=== PATIENT | female | born 1990 | race Caucasian/White ===

== ENCOUNTER 2019-09-21 14:32 | Emergency (ER) | payer MEDICAID ==
[2019-09-21 14:44] VITALS: BP 128/65
--- NOTE | 2019-09-21 15:22 | XRAY Report ---
Reason: productive cough, fever. Procedure Date: 09/21/2019 Accession Number: [id number] / [id number] Procedure: XR - Chest 2 View X-Ray CPT Code: 18061 Final Report FULL RESULT: EXAM: CHEST RADIOGRAPHY EXAM DATE: 09/21/2019 02:53 PM. CLINICAL HISTORY: Productive cough and fever. COMPARISON: None. TECHNIQUE: 2 views. FINDINGS: Lungs/Pleura: Normal volumes. Patchy infiltrate in the anterior left base. No pleural effusion or pneumothorax. Mediastinum: Normal cardiomediastinal contour. Other: Minimal right convex curvature of the mid/lower thoracic spine. IMPRESSION: Patchy infiltrate in the anterior left base, suspicious for pneumonia in clinical setting of cough and fever. Recommend follow-up imaging 6-8 weeks to ensure resolution. RADIA
--- NOTE | 2019-09-21 16:11 | ED Physician Documentation ---
PD HPI URI - Stated complaint Stated Complaint: THROAT/CHEST/HEAD PAIN, COUGH, NAUSEA - Chief complaint Chief Complaint: Resp - History obtained from History obtained from: Patient - History of Present Illness Timing - onset: Other (Sick for a week and a half with cough productive of small amount of sputum. Exertional shortness of breath. On-and-off fevers and pretty consistent chills. She also has a sore throat and scratchy voice.) Review of Systems Constitutional: reports: Fever, Chills, Fatigue Nose: reports: Rhinorrhea / runny nose. denies: Congestion Throat: reports: Sore throat GI: denies: Vomiting, Diarrhea PD PAST MEDICAL HISTORY - Present Medications Home Medications: Ambulatory Orders Medication Instructions Recorded Confirmed Azithromycin [Zithromax] 1 tab PO DAILY #6 tablet 09/21/19 guaiFENesin/CODEINE [Robitussin AC] 5 - 10 ml PO Q6H PRN #120 ml 09/21/19 - Allergies Allergies/Adverse Reactions: Allergies Allergy/AdvReac Type Severity Reaction Status Date / Time No Known Drug Allergies Allergy Verified 09/21/19 14:44 PD ED PE NORMAL - Vitals Vital signs reviewed: Yes - General General: Alert and oriented X 3, No acute distress - HEENT HEENT: PERRL, Ears normal, Pharynx benign - Neck Neck: Supple, no meningeal sign, No bony TTP - Cardiac Cardiac: RRR, No murmur - Respiratory Respiratory: No respiratory distress, Clear bilaterally - Abdomen Abdomen: Non tender - Back Back: No CVA TTP - Derm Derm: No rash - Neuro Neuro: Alert and oriented X 3 Results - Vitals Vitals: Vital Signs - 24 hr 09/21/19 14:40 Temperature 37 C Heart Rate 104 H Respiratory 18 Rate Blood Pressure 128/65 O2 Saturation 99 Oxygen O2 Source Room air - Rads (name of study) 2v chest Radiology: EMP read contemporaneously (patchy LLL PNA) Departure - Departure Disposition: 01 Home, Self Care Clinical Impression: Pneumonia Qualifiers: Pneumonia type: due to unspecified organism Laterality: left Lung location: lower lobe of lung Qualified Code(s): J18.9 - Pneumonia, unspecified organism Condition: Good Record reviewed to determine appropriate education?: Yes Instructions: Pneumonia Dc Prescriptions: Azithromycin [Zithromax] 1 tab PO DAILY #6 tablet guaiFENesin/CODEINE [Robitussin AC] 5 - 10 ml PO Q6H PRN #120 ml PRN Reason: Cough Comments: Follow-up with your doctor in 1 week for recheck. He or she may want to repeat a chest x-ray in 4 to 6 weeks to demonstrate clearance of the pneumonia in the left lower lobe. Return for new or worsening symptoms. Do not drink or drive while taking the prescription cough syrup.
== END 2019-09-21 16:12 | disposition home or self-care (01) ==
LOC: ED 14:32
DX: J18.9 Pneumonia, unspecified organism (principal)
CPT/HCPCS: 71046; 99283

== ENCOUNTER 2019-09-22 10:15 | Emergency (ER) | payer MEDICAID ==
--- NOTE | 2019-09-22 11:48 | ED Physician Documentation ---
History of Present Illness - Stated complaint Stated Complaint: SOA - Chief complaint Chief Complaint: Resp - Additonal information Additional information: This is a 29-year-old female who returns to emergency department with feeling rundown and not improved since yesterday. She was seen yesterday for productive cough, Found to have a left lower lobe infiltrate and started on azithromycin. Patient states she felt nauseated after taking the azithromycin she did not take it this morning, and she still feels rundown, has a cough, and has felt some chills. She denies vomiting. She does feel some increased work of breathing, Unchanged from yesterday. No hemoptysis. Review of Systems Constitutional: reports: Fever Respiratory: reports: Dyspnea, Cough GI: reports: Nausea. 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 HEENT: None Psych: None Musculoskeletal: None Derm: None - Past Surgical History Past Surgical History: No HEENT: Tonsil/Adenoidectomy - Present Medications Home Medications: Ambulatory Orders Medication Instructions Recorded Confirmed Azithromycin [Zithromax] 1 tab PO DAILY #6 tablet 09/21/19 guaiFENesin/CODEINE [Robitussin AC] 5 - 10 ml PO Q6H PRN #120 ml 09/21/19 Doxycycline Hyclate 100 mg PO BID #20 capsule 09/22/19 Ferrous Gluconate [Iron] 240 mg PO DAILY #30 tablet 09/22/19 Ondansetron Odt [Zofran] 4 mg TL Q6H PRN #10 tablet 09/22/19 - Allergies Allergies/Adverse Reactions: Allergies Allergy/AdvReac Type Severity Reaction Status Date / Time No Known Drug Allergies Allergy Verified 09/22/19 10:28 - Social History Does the pt smoke?: No Smoking Status: Never smoker Does the pt drink ETOH?: Yes Does the pt have substance abuse?: Yes Substance Use and Type: Marijuana - Immunizations Immunizations are current?: No - POLST Patient has POLST: No PD ED PE NORMAL - Vitals Vital signs reviewed: Yes - General General: Alert and oriented X 3, No acute distress - HEENT HEENT: PERRL - Neck Neck: Supple, no meningeal sign - Cardiac Cardiac: RRR, No murmur - Respiratory Respiratory: Other (Slight crackles at the left lower base. Otherwise clear to auscultation bilaterally. Normal work of breathing.) - Abdomen Abdomen: Normal bowel sounds, Soft, Non tender, Non distended - Derm Derm: Warm and dry - Extremities Extremities: No deformity - Neuro Neuro: Alert and oriented X 3 - Psych Psych: Normal mood, Normal affect Results - Vitals Vitals: Oxygen O2 Source Room air - Labs Labs: Microbiology 09/22/19 16:01 Occult Blood - Final Stool Laboratory Tests 09/22/19 09/22/19 09/22/19 12:14 12:24 12:24 WBC 14.1 H RBC 2.92 L Hgb 6.9 L* Hct 22.9 L MCV 78.4 L MCH 23.6 L MCHC 30.1 L RDW 15.9 H Plt Count 297 MPV 9.1 Neut # (Auto) 12.4 H Lymph # (Auto) 0.9 L [place] # (Auto) 0.5 Eos # (Auto) 0.1 Baso # (Auto) 0.0 Absolute Nucleated RBC 0.00 Nucleated RBC % 0.0 Manual Slide Review Indicated WBC Morphology NORMAL APPEARANCE Platelet Estimate NORMAL (130-450,000) Platelet Morphology NORMAL APPEARANCE RBC Morph Micro Appear 1+ POLYCHROMASIA Sodium 138 Potassium 4.0 Chloride 104 Carbon Dioxide 25 Anion Gap 9.0 BUN 9 Creatinine 0.7 Estimated GFR (MDRD) 98 Glucose 91 Lactic Acid Calcium 8.5 Total Bilirubin 0.2 AST 18 ALT 10 Alkaline Phosphatase 51 Total Protein 7.2 Albumin 3.8 Globulin 3.4 Albumin/Globulin Ratio 1.1 Lipase 32 Serum HCG, Qual Urine Color Urine Clarity Urine pH Ur Specific [place] Urine Protein Urine Glucose (UA) Urine Ketones Urine Occult Blood Urine Nitrite Urine Bilirubin Urine Urobilinogen Ur Leukocyte Esterase Ur Microscopic Review Blood Type Blood Type Recheck O POSITIVE Antibody Screen Crossmatch IS Only 09/22/19 09/22/19 09/22/19 12:24 14:03 14:03 WBC RBC Hgb Hct MCV MCH MCHC RDW Plt Count MPV Neut # (Auto) Lymph # (Auto) [place] # (Auto) Eos # (Auto) Baso # (Auto) Absolute Nucleated RBC Nucleated RBC % Manual Slide Review WBC Morphology Platelet Estimate Platelet Morphology RBC Morph Micro Appear Sodium Potassium Chloride Carbon Dioxide Anion Gap BUN Creatinine Estimated GFR (MDRD) Glucose Lactic Acid 0.5 Calcium Total Bilirubin AST ALT Alkaline Phosphatase Total Protein Albumin Globulin Albumin/Globulin Ratio Lipase Serum HCG, Qual NEGATIVE Urine Color Urine Clarity Urine pH Ur Specific [place] Urine Protein Urine Glucose (UA) Urine Ketones Urine Occult Blood Urine Nitrite Urine Bilirubin Urine Urobilinogen Ur Leukocyte Esterase Ur Microscopic Review Blood Type O POSITIVE Blood Type Recheck Antibody Screen NEGATIVE Crossmatch IS Only See Detail 09/22/19 15:40 WBC RBC Hgb Hct MCV MCH MCHC RDW Plt Count MPV Neut # (Auto) Lymph # (Auto) [place] # (Auto) Eos # (Auto) Baso # (Auto) Absolute Nucleated RBC Nucleated RBC % Manual Slide Review WBC Morphology Platelet Estimate Platelet Morphology RBC Morph Micro Appear Sodium Potassium Chloride Carbon Dioxide Anion Gap BUN Creatinine Estimated GFR (MDRD) Glucose Lactic Acid Calcium Total Bilirubin AST ALT Alkaline Phosphatase Total Protein Albumin Globulin Albumin/Globulin Ratio Lipase Serum HCG, Qual Urine Color YELLOW Urine Clarity CLEAR Urine pH 6.5 Ur Specific [place] 1.010 Urine Protein NEGATIVE Urine Glucose (UA) NEGATIVE Urine Ketones NEGATIVE Urine Occult Blood NEGATIVE Urine Nitrite NEGATIVE Urine Bilirubin NEGATIVE Urine Urobilinogen 0.2 (NORMAL) Ur Leukocyte Esterase NEGATIVE Ur Microscopic Review NOT INDICATED Blood Type Blood Type Recheck Antibody Screen Crossmatch IS Only PD MEDICAL DECISION MAKING - ED course Complexity details: considered differential (Pneumonia, dehydration, electrode abnormality, GI bleed, urinary tract infection) ED course: Patient is nontoxic-appearing with unremarkable vital signs on initial exam. She has a known pneumonia with an x-ray done in the last 24 hours. Given that she is feeling rundown, labs were obtained. Labs returned with a hemoglobin of 6.9, microcytic. Patient states that she does have anemia, but she has not had labs drawn for years. She denies any heavy vaginal bleeding, black stool, blood in her stool, or other sources of bleeding. She has never needed a transfusion in the past. She thinks she has been told that she was iron deficient in the past. She is not currently on iron. She does feel generalized weakness, it is unclear if this is due to her pneumonia or from her anemia, or likely a combination of both. She was given 1 unit of packed red blood cells, And after she felt improved. Fecal occult blood is negative. She continues to have stable vital signs, is able to get up and use the bathroom without symptoms, and is feeling overall better. Her labs otherwise notable for leukocytosis consistent with her pneumonia. Her urinalysis is negative for infection. I will change her antibiotic to doxycycline given that she did not appear to tolerate the azithromycin very well. Patient feels well enough to go home, we discussed strict return precautions with any worsening, with any signs of bleeding. I also started her on low-dose of iron, And she knows to follow-up with her primary care provider on her anemia. Patient agrees and was discharged home in the care of her . Departure - Departure Disposition: 01 Home, Self Care Clinical Impression: Pneumonia Qualifiers: Pneumonia type: due to unspecified organism Laterality: left Lung location: lower lobe of lung Qualified Code(s): J18.9 - Pneumonia, unspecified organism Anemia Qualifiers: Anemia type: unspecified type Qualified Code(s): D64.9 - Anemia, unspecified Instructions: Pneumonia Dc Follow-Up: Your,PCP [Other] - Within 1 week Prescriptions: Doxycycline Hyclate 100 mg PO BID #20 capsule Ferrous Gluconate [Iron] 240 mg PO DAILY #30 tablet Ondansetron Odt [Zofran] 4 mg TL Q6H PRN #10 tablet PRN Reason: Nausea / Vomiting Comments: You were seen today for pneumonia, we are switching your antibiotic to doxycycline, you may stop taking the azithromycin. You may also take Tylenol andibuprofen for discomfort or fever. You also had a severe anemia, your hemoglobin was 6.9. You have been given a unit of blood and we do not see signs of active bleeding on your exam today. Start taking the iron, you may take this daily or every other day. Please follow-up with your primary care provider as soon as possible, as you will likely need more testing. If you develop lightheadedness, blood in your stool or black/tarry stools, or passing out, or any other concerning symptoms return to the emergency department. Discharge Date/Time: 09/22/19 19:11
[2019-09-22] MEDS ORDERED: DOXYCYCLINE 100 MG TABLET PO STA (12:14)
[2019-09-22] MEDS ORDERED: ACETAMINOPHEN 325 MG TABLET PO STA ×2 (12:14→17:20)
[2019-09-22] MEDS ORDERED: ONDANSETRON ODT 4 MG TABLET TL STA (12:14)
[2019-09-22 12:33] LABS: BASOPHILS % (AUTO) 0.2 %; EOSINOPHILS # (AUTO) 0.1 10^3/uL (0.0-0.7); EOSINOPHILS % (AUTO) 0.6 %; LYMPHOCYTES # (AUTO) 0.9 10^3/uL (1.5-3.5); LYMPHOCYTES % (AUTO) 6.7 %; MEAN CORPUSCULAR HEMOGLOBIN 23.6 pg (27.0-31.0); MEAN CORPUSCULAR HGB CONC 30.1 g/dL (32.0-36.0); MEAN CORPUSCULAR VOLUME 78.4 fL (81.0-99.0); MEAN PLATELET VOLUME 9.1 fL (7.9-10.8); MONOCYTES # (AUTO) 0.5 10^3/uL (0.0-1.0); MONOCYTES % (AUTO) 3.6 %; NEUTROPHILS # (AUTO) 12.4 10^3/uL (1.5-6.6); NEUTROPHILS % (AUTO) 88.3 %; PLT - PLATELET COUNT 297 10^3/uL (130-450); RED BLOOD COUNT 2.92 10^6/uL (4.20-5.40); RED CELL DISTRIBUTION WIDTH 15.9 % (12.0-15.0); WHITE BLOOD COUNT 14.1 x10^3/uL (4.8-10.8)
[2019-09-22 12:36] LABS: HGB - HEMOGLOBIN 6.9 g/dL (12.0-16.0)
[2019-09-22 13:01] LABS: ALBUMIN 3.8 g/dL (3.2-5.5); ALBUMIN/GLOBULIN RATIO 1.1 (1.0-2.2); BILIRUBIN,TOTAL 0.2 mg/dL (0.2-1.0); CALCIUM 8.5 mg/dL (8.5-10.3); CREATININE 0.7 mg/dL (0.4-1.0); TOTAL PROTEIN 7.2 g/dL (6.7-8.2)
[2019-09-22 13:06] LABS: PLATELET ESTIMATE, MANUAL NORMAL (130-450,000) (NORMAL); PLATELET MORPHOLOGY NORMAL APPEARANCE (NORMAL)
[2019-09-22 13:25] LABS: HCG,QUALITATIVE BLOOD NEGATIVE
[2019-09-22 15:57] LABS: BILIRUBIN,URINE NEGATIVE (NEGATIVE); GLUCOSE, URINE (UA) NEGATIVE (NEGATIVE); KETONES,URINE (UA) NEGATIVE (NEGATIVE); LEUKOCYTE ESTERASE, URINE NEGATIVE (NEGATIVE); NITRITE,URINE NEGATIVE (NEGATIVE); OCCULT BLOOD,URINE NEGATIVE (NEGATIVE); PH,URINE 6.5 PH (5.0-7.5); PROTEIN,URINE NEGATIVE (NEGATIVE); UROBILINOGEN,URINE 0.2 (NORMAL) E.U./dL (NORMAL)
[2019-09-22 16:00] LABS: CLARITY,URINE CLEAR (CLEAR)
[2019-09-22 18:34] VITALS: BP 116/60
== END 2019-09-22 19:11 | disposition home or self-care (01) ==
LOC: ED 10:15
DX: J18.9 Pneumonia, unspecified organism (principal); D64.9 Anemia, unspecified; R11.0 Nausea
CPT/HCPCS: 36415; 36430; 80053; 81003; 82272; 83605; 83690; 84703; 85025; 86850; 86900; 86901; 86920; 99284; 99285; A9270; P9016; Q0162; 81001

== ENCOUNTER 2019-11-03 18:41 | Emergency (ER) | payer MEDICAID ==
[2019-11-03] MEDS ORDERED: CLINDAMYCIN 150 MG CAPSULE PO STA (19:12)
[2019-11-03] MEDS ORDERED: HYDROcod/ACETAM 5/325 MG TABLET PO STA (19:12)
--- NOTE | 2019-11-03 19:14 | ED Physician Documentation ---
PD HPI HEENT - Stated complaint Stated Complaint: TOOTH PX - Chief complaint Chief Complaint: Heent - History obtained from History obtained from: Patient (29-year-old woman with history of anemia developed a tooth ache yesterday, top left. No facial swelling or fevers. Pain is resistant to Orajel. 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 HEENT: None Psych: None Musculoskeletal: None Derm: None - Past Surgical History Past Surgical History: No HEENT: Tonsil/Adenoidectomy - Present Medications Home Medications: Ambulatory Orders Medication Instructions Recorded Confirmed Azithromycin [Zithromax] 1 tab PO DAILY #6 tablet 09/21/19 guaiFENesin/CODEINE [Robitussin AC] 5 - 10 ml PO Q6H PRN #120 ml 09/21/19 Doxycycline Hyclate 100 mg PO BID #20 capsule 09/22/19 Ferrous Gluconate [Iron] 240 mg PO DAILY #30 tablet 09/22/19 Ondansetron Odt [Zofran] 4 mg TL Q6H PRN #10 tablet 09/22/19 Clindamycin HCl [Clindamycin 300MG 300 mg PO Q6H #40 capsule 11/03/19 CAP] Ferrous Sulfate 325 mg PO BID #120 tablet 11/03/19 Hydrocodone/Acetaminophen 1 - 2 each PO Q6H PRN #14 tablet 11/03/19 [Hydrocodon-Acetaminophen 5-325] - Allergies Allergies/Adverse Reactions: Allergies Allergy/AdvReac Type Severity Reaction Status Date / Time No Known Drug Allergies Allergy Verified 09/22/19 10:28 - Social History Does the pt smoke?: No Smoking Status: Never smoker Does the pt drink ETOH?: Yes Does the pt have substance abuse?: Yes - Immunizations Immunizations are current?: No - POLST Patient has POLST: No PD ED PE NORMAL - Vitals Vital signs reviewed: Yes - General General: Alert and oriented X 3, No acute distress - HEENT HEENT: Other (Tender and carious molar on the top left without underlying swelling, trismus, or facial cellulitis) - Neck Neck: Supple, no meningeal sign, No bony TTP - Neuro Neuro: Alert and oriented X 3, Normal speech Results - Vitals Vitals: Vital Signs - 24 hr 11/03/19 18:46 Temperature 37.4 C Heart Rate 77 Respiratory 18 Rate Blood Pressure 122/47 L O2 Saturation 99 Oxygen O2 Source Room air - Labs Labs: Laboratory Tests 11/03/19 19:19 WBC 5.8 RBC 3.88 L Hgb 8.3 L Hct 28.9 L MCV 74.5 L MCH 21.4 L MCHC 28.7 L RDW 17.3 H Plt Count 316 MPV 8.8 Neut # (Auto) 3.5 Lymph # (Auto) 1.6 [place] # (Auto) 0.6 Eos # (Auto) 0.1 Baso # (Auto) 0.0 Absolute Nucleated RBC 0.00 Nucleated RBC % 0.0 Manual Slide Review Indicated Platelet Estimate NORMAL (130-450,000) Platelet Morphology NORMAL APPEARANCE RBC Morph Micro Appear 1+ SCHISTOCYTES PD MEDICAL DECISION MAKING - ED course ED course: She presents with dental pain, no drainable abscess. She is started on ant ibiotics and pain medication. Review of the chart shows she was here around [facility] for symptomatic anemia and was transfused. Has not followed up with primary care since so a CBC was done with improved but not great results and primary care follow-up was advised. We will refill and increase the frequency of her iron supplementation. Departure - Departure Disposition: 01 Home, Self Care Clinical Impression: Pain due to dental caries Anemia Qualifiers: Anemia type: unspecified type Qualified Code(s): D64.9 - Anemia, unspecified Condition: Good Record reviewed to determine appropriate education?: Yes Instructions: ED Tooth Pain Prescriptions: Clindamycin HCl [Clindamycin 300MG CAP] 300 mg PO Q6H #40 capsule Ferrous Sulfate 325 mg PO BID #120 tablet Hydrocodone/Acetaminophen [Hydrocodon-Acetaminophen 5-325] 1 - 2 each PO Q6H PRN #14 tablet PRN Reason: pain Comments: Call your doctor to arrange a follow-up appointment, make the next available appointment. In the interim, return anytime if worse or if new symptoms develop. It is very important that you follow-up with a dentist. When it comes to dental problems like yours, the emergency department can only offer a short-term solution to your long-term problem. A couple of low cost options for dental care include: [facility] in [place], calls [phone] for an appointment Or [facility] in [place], call [phone] for an appointment.
[2019-11-03 19:22] LABS: BASOPHILS % (AUTO) 0.5 %; EOSINOPHILS # (AUTO) 0.1 10^3/uL (0.0-0.7); EOSINOPHILS % (AUTO) 1.9 %; HGB - HEMOGLOBIN 8.3 g/dL (12.0-16.0); LYMPHOCYTES # (AUTO) 1.6 10^3/uL (1.5-3.5); LYMPHOCYTES % (AUTO) 27.1 %; MEAN CORPUSCULAR HEMOGLOBIN 21.4 pg (27.0-31.0); MEAN CORPUSCULAR HGB CONC 28.7 g/dL (32.0-36.0); MEAN CORPUSCULAR VOLUME 74.5 fL (81.0-99.0); MEAN PLATELET VOLUME 8.8 fL (7.9-10.8); MONOCYTES # (AUTO) 0.6 10^3/uL (0.0-1.0); MONOCYTES % (AUTO) 9.7 %; NEUTROPHILS # (AUTO) 3.5 10^3/uL (1.5-6.6); NEUTROPHILS % (AUTO) 60.5 %; PLT - PLATELET COUNT 316 10^3/uL (130-450); RED BLOOD COUNT 3.88 10^6/uL (4.20-5.40); RED CELL DISTRIBUTION WIDTH 17.3 % (12.0-15.0); WHITE BLOOD COUNT 5.8 x10^3/uL (4.8-10.8)
[2019-11-03 20:00] LABS: PLATELET ESTIMATE, MANUAL NORMAL (130-450,000) (NORMAL); PLATELET MORPHOLOGY NORMAL APPEARANCE (NORMAL)
[2019-11-03 20:18] VITALS: BP 124/46
== END 2019-11-03 20:20 | disposition home or self-care (01) ==
LOC: ED 18:41
DX: K02.9 Dental caries, unspecified (principal); D64.9 Anemia, unspecified
CPT/HCPCS: 36415; 85025; 99283; 99284; A9270

== ENCOUNTER 2019-12-06 20:58 | Emergency (ER) | payer MEDICAID ==
[2019-12-06 21:06] VITALS: BP 142/70
[2019-12-06 21:21] LABS: RAPID STREP SCREEN Negative (Negative)
--- NOTE | 2019-12-06 21:26 | ED Physician Documentation ---
History of Present Illness - Stated complaint Stated Complaint: JAW/EAR PX - Chief complaint Chief Complaint: Heent - Additonal information Additional information: This is a 29-year-old female presents with nasal congestion, sore throat, and left ear pain. Patient has had a fever nasal congestion and sore throat for several days and today her left ear started hurting. She said the pain was moderate to severe, pressure-like. She has been taking ibuprofen and Tylenol and this helps temporarily. She has not had much of a cough. She has a history of a tonsillectomy. No vomiting, no diarrhea, no abdominal pain. No chest pain. She has many contacts who have been sick with colds recently. 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 HEENT: None Psych: None Musculoskeletal: None Derm: None - Past Surgical History Past Surgical History: No HEENT: Tonsil/Adenoidectomy - Present Medications Home Medications: Ambulatory Orders Medication Instructions Recorded Confirmed Azithromycin [Zithromax] 1 tab PO DAILY #6 tablet 09/21/19 guaiFENesin/CODEINE [Robitussin AC] 5 - 10 ml PO Q6H PRN #120 ml 09/21/19 Doxycycline Hyclate 100 mg PO BID #20 capsule 09/22/19 Ferrous Gluconate [Iron] 240 mg PO DAILY #30 tablet 09/22/19 Ondansetron Odt [Zofran] 4 mg TL Q6H PRN #10 tablet 09/22/19 Clindamycin HCl [Clindamycin 300MG 300 mg PO Q6H #40 capsule 11/03/19 CAP] Ferrous Sulfate 325 mg PO BID #120 tablet 11/03/19 Hydrocodone/Acetaminophen 1 - 2 each PO Q6H PRN #14 tablet 11/03/19 [Hydrocodon-Acetaminophen 5-325] - Allergies Allergies/Adverse Reactions: Allergies Allergy/AdvReac Type Severity Reaction Status Date / Time No Known Drug Allergies Allergy Verified 12/06/19 21:03 - Social History Does the pt smoke?: No Smoking Status: Never smoker Does the pt drink ETOH?: Yes Does the pt have substance abuse?: Yes - Immunizations Immunizations are current?: No - POLST Patient has POLST: No PD ED PE NORMAL - Vitals Vital signs reviewed: Yes - General General: Alert and oriented X 3 - HEENT HEENT: Atraumatic, PERRL, Other (Serous effusion in the left ear, no purulence, eardrum is flat. Right TM has a small serous effusion, external canals are normal bilaterally. There is posterior pharynx erythema, tonsils are surgically absent. Uvula is midline. There is no exudate.) - Neck Neck: Supple, no meningeal sign - Cardiac Cardiac: RRR, No murmur - Respiratory Respiratory: No respiratory distress - Abdomen Abdomen: Non distended - Derm Derm: Warm and dry - Extremities Extremities: No deformity - Neuro Neuro: Alert and oriented X 3 - Psych Psych: Normal mood, Normal affect Results - Vitals Vitals: Oxygen O2 Source Room air - Labs Labs: Microbiology 12/06/19 21:06 Group A Strep Throat Culture - Preliminary Throat CULTURE IN PROGRESS. RESULTS TO FOLLOW. Laboratory Tests 12/06/19 21:06 Group A Strep Rapid Negative PD MEDICAL DECISION MAKING - ED course ED course: Patient presents with sore throat and ear pain, she has a serous effusion but no signs of otitis media rapid strep is negative and her symptoms sound more consistent with a viral URI been bacterial infection at this time. 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 She was given dexamethasone for symptomatic control, I reviewed supportive care and return precautions and patient was discharged home in good condition Departure - Departure Disposition: 01 Home, Self Care Clinical Impression: Sore throat Condition: Good Comments: You have some fluid behind your left ear but I do not see signs of infection today and your rapid strep was negative. I think you likely of a viral illness which is causing both your ear pain and your sore throat. Please add a decongestant to your medications, this could include Sudafed, Benadryl, or phenylephrine. We have also given you a steroid which should hopefully help with your sore throat. We will call you if your culture result turns positive for a bacterial throat infection. If you having worsening such as difficulty breathing, difficulty speaking, or swelling localized to one side of the back your throat, return to the emergency department Discharge Date/Time: 12/06/19 22:02
[2019-12-06] MEDS ORDERED: DEXAMETHASONE 10 MG/ML VIAL PO STA (21:48)
[2019-12-06] MEDS ORDERED: CHERRY SYRUP 10 ML UDC PO ONE (21:48)
== END 2019-12-06 22:02 | disposition home or self-care (01) ==
LOC: ED 20:58
DX: J02.9 Acute pharyngitis, unspecified (principal); H92.02 Otalgia, left ear
CPT/HCPCS: 87070; 87430; 99283; 99284; A9270

== ENCOUNTER 2020-08-13 11:45 | Outpatient (CLI) | payer MEDICAID | END 2020-08-13 23:59 | disposition home or self-care (01) | LOC: LAB.R 11:45 | PROVIDERS: ATTEND Physician Assistant | DX: R30.0 Dysuria (principal) | CPT/HCPCS: 87086 ==